=== PATIENT | female | born 1995 | race Caucasian/White ===

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

== ENCOUNTER 2017-03-11 20:05 | Emergency (ER) | payer OTHER, MEDICAID ==
[2017-03-11 20:21] VITALS: TEMP 97.7
[2017-03-11] MEDS ORDERED: LORazepam 1 MG TAB PO ONE (21:04)
[2017-03-11] MEDS ORDERED: diphenhydrAMINE 25 MG CAP PO ONE (21:04)
--- NOTE | 2017-03-11 21:04 | EDPHY ---
H & P Stated Complaint: sinus pain for months seen by beatriz yesterday worsening today Time Seen by Provider: 03/11/17 21:01 HPI/ROS: HPI: This is a 22-year-old female who presents Chief Complaint: Medication reaction Location: Sinus Quality: Fullness Duration: Today Signs and Symptoms: No fever, no rhinorrhea, no headache, no ear pain, no difficulty swallowing, no wheezing Timing: Acute Severity: Moderate Context: Patient reports that she has a history of sinus disease x3 months, treated with nasal spray and multiple antibiotics. She saw Dr. Soto ENT yesterday and told it was nasal inflammation; given Flonase. She use the Flonase today immediately felt like it made her sinus full and swollen. She is extremely anxious and is requesting medications to calm her nerves. Modifying Factors: Has not tried any [id number] medications did not call ENT Comment: ROS: Constitutional: No fever, no chills, no weight loss Eyes: No blurred vision Respiratory: No shortness of breath, no cough Cardiovascular: No chest pain Gastrointestinal: No nausea, no vomiting no diarrhea Genitourinary: No dysuria Extremities: No myalgias Neurologic: No weakness, no numbness Skin: No rashes Hematologic: No bruising, no bleeding Past medical history: Amenorrhea, PTSD. Past surgical history: Denies. Family history: "Autoimmune issues." Social history: Student at [employer]. Source: Patient Exam Limitations: No limitations - Personal History Current Tetanus/Diphtheria Vaccine: Yes Current Tetanus Diphtheria and Acellular Pertussis (TDAP): Yes - Medical/Surgical History Hx Asthma: No Hx Chronic Respiratory Disease: No Hx Diabetes: No Hx Cardiac Disease: No Hx Renal Disease: No Hx Cirrhosis: No Hx Alcoholism: No Hx HIV/AIDS: No Hx Splenectomy or Spleen Trauma: No Other PMH: amenorrhea. denies surgical Hx - Social History Smoking Status: Never smoked - Physical Exam Exam: CONSTITUTIONAL: Tearful, anxious white petite female holding a stuffed animal awake and alert, no obvious distress HEENT: Atraumatic and normocephalic, PERRL, EOMI. Tympanic membranes clear. Oropharynx clear, no exudate and moist pink mucosa. Nares patent; mucosa pale; no rhinorrhea; no mucosal edema. Airway patent. No lymphadenopathy. No meningismus. Cardiovascular: Normal S1/S2, regular rate, regular rhythm, without murmur rub or gallop. PULMONARY/CHEST: Symmetrical and nontender. Clear to auscultation bilaterally Good air movement. No accessory muscle usage. ABDOMEN: Soft, nondistended, nontender, no rebound, no guarding, no peritoneal signs, no masses or organomegaly. No CVAT. EXTREMITIES: 2/2 pulses, no deformities, no clubbing, no cyanosis or edema. NEUROLOGICAL: no focal neuro deficits. GCS 15. SKIN: Warm and dry, no erythema. no rash. Good capillary refill. Constitutional: Initial Vital Signs Temperature (C) 36.5 C 03/11/17 20:16 Heart Rate 79 03/11/17 20:16 Respiratory Rate 18 03/11/17 20:16 Blood Pressure 93/62 L 03/11/17 20:16 O2 Sat (%) 97 03/11/17 20:16 O2 Delivery Mode Room Air Allergies/Adverse Reactions: gluten Allergy (Verified 09/30/16 16:18) Home Medications: Medication Instructions Recorded Fluticasone Nasal [Flonase Nasal 03/11/17 [place]] Medical Decision Making ED Course/Re-evaluation: Given Benadryl and Ativan with moderate relief Afebrile. No systemic signs. Sinus disease chronic in nature. Advised to discontinue Flonase and follow up with ENT Suspect anxiety component No signs of abscess/cellulitis/sepsis Differential Diagnosis: Headache including but not limited to subarachnoid hemorrhage, migraine headache , tension headache and infectious causes such as meningitis, pharyngitis and sinusitis. Departure - Departure Disposition: Home, Routine, Self-Care Clinical Impression: Sinus disease Medication adverse effect Qualifiers: Encounter type: initial encounter Qualified Code(s): T88.7XXA - Unspecified adverse effect of drug or medicament, initial encounter Condition: Good Instructions: Sinusitis (ED), Allergies (ED) Additional Instructions: Stop taking Flonase. Advise ENT of your adverse reaction and follow up with them. Use Benadryl 25-50 mg every 4-6 hours as needed for allergic reaction. Referrals: Keli Grant MD [Primary Care Provider] - As per Instructions
[2017-03-12 00:30] VITALS: BP 95/64; PULSE 58; RESP 14; O2SAT 95
== END 2017-03-12 00:30 | disposition home or self-care (01) ==
DX: J32.9 Chronic sinusitis, unspecified (principal); T49.6X5A Adverse effect of otorhinolaryngological drugs and preparations, initial encounter

== ENCOUNTER → 2017-08-28 | Outpatient (CLI) | payer OTHER, MEDICAID | LOC: FIMAGING 08:04 | PROVIDERS: ATTEND Psychiatry & Neurology Neurology | DX: R51 Headache (principal) ==

== ENCOUNTER 2018-06-03 22:09 | Emergency (ER) | payer OTHER, MEDICAID ==
--- NOTE | 2018-06-03 22:22 | EDPHY ---
H & P Stated Complaint: L ARM PAIN/FALL Time Seen by Provider: 06/03/18 22:22 HPI/ROS: HPI CHIEF COMPLAINT: Left elbow pain status post fall. HISTORY OF PRESENT ILLNESS: 23-year-old female she is otherwise healthy, denies taking any medications presents emergency room with left elbow pain left elbow swelling. Patient states she was walking home from the grocery store, and slipped and fell on ice. She did not see the ice landed on her left elbow. She now has left elbow swelling. Denies head strike or neck pain. Denies chest pain or shortness of breath. She states she initially landed on her butt and then left elbow. She has pain with range of motion of her left arm. Left upper extremity is otherwise neurovascular intact with a hematoma over the left elbow. Good distal pulse. No wrist pain, no hand pain, no forearm pain, pain is located left posterior elbow. Past Medical History: Denies medical history Past Surgical History: Denies surgical history Social History: Denies drugs alcohol tobacco. Family History: Noncontributory ROS REVIEW OF SYSTEMS: 10 Systems were reviewed and negative with the exception of the elements mentioned in the history of present illness. Exam Constitutional triage nursing summary reviewed, vital signs reviewed, awake/ alert. Eyes normal conjunctivae and sclera, EOMI, PERRLA. HENT normal inspection, atraumatic, moist mucus membranes, no epistaxis, neck supple/ no meningismus, no raccoon eyes. Respiratory clear to auscultation bilaterally, normal breath sounds, no respiratory distress, no wheezing. Cardiovascular rate normal, regular rhythm, no murmur, no edema, distal pulses normal. Gastrointestinal soft, non-tender, no rebound, no guarding, normal bowel sounds, no distension, no pulsatile mass. Genitourinary no CVA tenderness. 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 No laceration. No abrasion. Sensation intact. No compartment syndrome. no midline vertebral tenderness, full range of motion, no calf swelling, no tenderness of extremities, no meningismus, good pulses, neurovascularly intact. Skin pink, warm, & dry, no rash, skin atraumatic. Neurologic awake, alert and oriented x 3, AAOx3, moves all 4 extremities equally, motor intact, sensory intact, CN II-XII intact, normal cerebellar, normal vision, normal speech. Psychiatric normal mood/affect. Heme/Lymph/Immune no lymphadenopathy. Differential Diagnosis: Includes but is not limited to in a particular order elbow contusion, elbow sprain, elbow fracture, radial head fracture, occult fracture, hemarthrosis, soft tissue injury, contusion, hematoma. Medical Decision Making: Plan for this patient x-ray left elbow. Ice pack, ibuprofen. Will have a low threshold to splint her given the amount of trauma. Patient most likely need to follow up with Orthopedics. Re-evaluation: Recommend the patient splint Sling Ibuprofen Ice Close orthopedic follow-up. X-ray reviewed. This shows olecranon fracture. Patient will be splinted posterior long-arm splint. Sling. Orthopedic follow- up. Patient understands she needs to follow up with Orthopedics. Olecranon fracture. Closed. Patient be splinted posterior long-arm splint. Sling. [place] and ibuprofen for pain control. After discussion about her fracture x-ray she became very upset and somewhat anxious. Mom request Ativan at bedside. 1 mg p.o. Ativan ordered. Source: Patient - Personal History LMP (Females 10-55): 15-21 Days Ago Current Tetanus Diphtheria and Acellular Pertussis (TDAP): Yes - Medical/Surgical History Hx Asthma: No Hx Chronic Respiratory Disease: No Hx Diabetes: No Hx Cardiac Disease: No Hx Renal Disease: No Hx Cirrhosis: No Hx Alcoholism: No Hx HIV/AIDS: No Hx Splenectomy or Spleen Trauma: No Other PMH: amenorrhea. denies surgical Hx - Social History Smoking Status: Never smoked Constitutional: Initial Vital Signs Temperature (C) 36.2 C 06/03/18 22:14 Heart Rate 83 06/03/18 22:14 Respiratory Rate 16 06/03/18 22:14 Blood Pressure 123/72 H 06/03/18 22:14 O2 Sat (%) 97 06/03/18 22:14 O2 Delivery Mode Room Air Allergies/Adverse Reactions: gluten Allergy (Verified 09/30/16 16:18) Home Medications: Medication Instructions Recorded Hydrocodone/APAP 5/325 [[place] 1 - 2 tab PO Q4H PRN #10 tab 06/03/18 5/325] Ibuprofen [Motrin (*)] 800 mg PO Q6-8PRN #14 tab 06/03/18 Medical Decision Making - Diagnostics Imaging Results: Imaging Impressions Elbow X-Ray 06/03/18 22:24 Impression: Displaced comminuted proximal ulna olecranon process fracture. - Data Points Medications Given: Discontinued Medications Ibuprofen (Motrin) 800 mg PO EDNOW ONE Stop: 06/03/18 22:25 Last Admin: 06/03/18 22:27 Dose: 800 mg Departure - Departure Disposition: Home, Routine, Self-Care Clinical Impression: Elbow fracture, left Qualifiers: Encounter type: initial encounter Fracture type: closed Qualified Code(s): S42.402A - Unspecified fracture of lower end of left humerus, initial encounter for closed fracture Condition: Good Instructions: Elbow Fracture (ED) Additional Instructions: 1. Recommend ice 2. Elevation. 3. Splint for comfort 4. Tylenol and Motrin for pain control 5. Follow up with Orthopedics. Referrals: Keli Grant MD [Primary Care Provider] - As per Instructions Cele Vines MD [Medical Doctor] - As per Instructions Prescriptions: Hydrocodone/APAP 5/325 [[place] 5/325] 1 - 2 tab PO Q4H PRN #10 tab PRN Reason: Pain, Moderate Ibuprofen [Motrin (*)] 800 mg PO Q6-8PRN #14 tab
[2018-06-03] MEDS ORDERED: IBUPROFEN 800 MG TAB PO ONE (22:24)
[2018-06-03] MEDS ORDERED: LORazepam 1 MG TAB PO ONE (23:12)
[2018-06-04 00:06] VITALS: BP 118/64
--- NOTE | 2018-06-07 21:33 | ASMTCMCOM ---
CM Note CM Note Notes: Patient contacted CM regarding neccessary referral/authorization request from [facility] for scheduled orthopedic appointment with Dr. Vines on June 09. This CM contacted Dinah Owens RN, out of school hours care worker for patient's PCP, Dr. Keli Grant. ED records and referral reviewed per Dr. Grant and authorization process with [facility] in progress. CM available prn Date Signed: 06/07/2018 02:17 PM Electronically Signed By:Aurora Rees RN
== END 2018-06-04 00:05 | disposition home or self-care (01) ==
PROC: 2W39X1Z Immobilization of Left Upper Extremity using Splint (ICD-10-PCS; principal; 2018-06-03)
DX: S42.402A Unspecified fracture of lower end of left humerus, initial encounter for closed fracture (principal); W00.0XXA Fall on same level due to ice and snow, initial encounter; Y93.01 Activity, walking, marching and hiking; Y92.9 Unspecified place or not applicable; Y99.8 Other external cause status
CPT/HCPCS: A4565

== ENCOUNTER 2018-06-14 00:51 | Emergency (ER) | payer OTHER, MEDICAID ==
[2018-06-14 00:57] VITALS: BP 102/70
--- NOTE | 2018-06-14 01:08 | EDPHY ---
H & P Stated Complaint: L HAND BRUISING, FX L ELBOW 06/03 Time Seen by Provider: 06/14/18 01:07 HPI/ROS: HPI CHIEF COMPLAINT: Bruising to left hand. HISTORY OF PRESENT ILLNESS: Very pleasant 23-year-old female, who I saw on June 03, had a elbow fracture after she slipped on ice. She was splinted posterior long-arm elbow and followed up with Orthopedics. She presents emergency room with some bruising to the dorsum of her left hand. No pain. No numbness or tingling no swelling. However the splint is also approximately 2- week-old and is loose, and hanging off. Will re-splint. Denies any significant pain, numbness or tingling, increasing swelling, fever, came to the emergency room due to discoloration of the left dorsum hand. Ecchymosis/colored green and yellow. Appears to be old bruising. Additionally this patient reports to me she has not wearing her sling. Her arm is often hanging. This is why she is getting some bruising in her hand as it is gravity dependent. I do recommend she stays in her sling as previously directed. Past Medical History: No significant medical history Past Surgical History: No significant surgical history Social History: Lives locally, mom bedside. Family History: Noncontributory ROS REVIEW OF SYSTEMS: 10 Systems were reviewed and negative with the exception of the elements mentioned in the history of present illness. Exam Constitutional appears well nontoxic triage nursing summary reviewed, vital signs reviewed, awake/alert. Eyes normal conjunctivae and sclera, EOMI, PERRLA. HENT normal inspection, atraumatic, moist mucus membranes, no epistaxis, neck supple/ no meningismus, no raccoon eyes. Respiratory clear to auscultation bilaterally, normal breath sounds, no respiratory distress, no wheezing. Cardiovascular rate normal, regular rhythm, no murmur, no edema, distal pulses normal. Gastrointestinal soft, non-tender, no rebound, no guarding, normal bowel sounds, no distension, no pulsatile mass. Genitourinary no CVA tenderness. Musculoskeletal no midline vertebral tenderness, full range of motion, no calf swelling, no tenderness of extremities, no meningismus, good pulses, neurovascularly intact. Skin left hand: Dorsum of the left hand is some green-yellow ecchymosis. Neurologic awake, alert and oriented x 3, AAOx3, moves all 4 extremities equally, motor intact, sensory intact, CN II-XII intact, normal cerebellar, normal vision, normal speech. Psychiatric normal mood/affect. Heme/Lymph/Immune no lymphadenopathy. Differential Diagnosis: Includes but is not limited to in a particular order need for splint adjustment Medical Decision Making: Plan for this patient takes splint down and replaced splint and examined arm fully. Re-evaluation: Splint was taken down. Her arm was re-examined. it is neurovascularly intact. Some mild swelling noted to left posterior elbow. Evans brown ecchymosis along the forearm. No significant swelling. Compartments are soft. Neurovascularly intact with good cap refill, sensation intact. Appears appropriate. New splint has been placed. Posterior long-arm has been applied. Patient tolerated this well. Neurovascular intact post splint placement Source: Patient - Personal History LMP (Females 10-55): Over 28 Days Ago Current Tetanus Diphtheria and Acellular Pertussis (TDAP): Yes - Medical/Surgical History Hx Asthma: No Hx Chronic Respiratory Disease: No Hx Diabetes: No Hx Cardiac Disease: No Hx Renal Disease: No Hx Cirrhosis: No Hx Alcoholism: No Hx HIV/AIDS: No Hx Splenectomy or Spleen Trauma: No Other PMH: amenorrhea. denies surgical Hx - Social History Smoking Status: Never smoked Constitutional: Initial Vital Signs Temperature (C) 36.9 C 06/14/18 00:56 Heart Rate 98 06/14/18 00:56 Respiratory Rate 16 06/14/18 00:56 Blood Pressure 102/70 06/14/18 00:56 O2 Sat (%) 95 06/14/18 00:56 O2 Delivery Mode Room Air Allergies/Adverse Reactions: gluten Allergy (Verified 09/30/16 16:18) Home Medications: Medication Instructions Recorded NK [No Known Home Meds] 06/14/18 Departure - Departure Disposition: Home, Routine, Self-Care Clinical Impression: Elbow fracture Qualifiers: Encounter type: initial encounter Fracture type: closed Laterality: left Qualified Code(s): S42.402A - Unspecified fracture of lower end of left humerus , initial encounter for closed fracture Condition: Good Instructions: Elbow Fracture (ED), Ecchymosis (ED) Additional Instructions: 1. Return if worsening symptoms questions or concerns 2. Ice. 3. Sling for comfort. 4. Continue to follow up with Orthopedics. Referrals: Keli Grant MD [Primary Care Provider] - As per Instructions
== END 2018-06-14 01:43 | disposition home or self-care (01) ==
PROC: 2W39X1Z Immobilization of Left Upper Extremity using Splint (ICD-10-PCS; principal; 2018-06-14)
DX: S42.402D Unspecified fracture of lower end of left humerus, subsequent encounter for fracture with routine healing (principal); S60.222A Contusion of left hand, initial encounter; W00.0XXD Fall on same level due to ice and snow, subsequent encounter; Y92.9 Unspecified place or not applicable; Y93.89 Activity, other specified; Y99.9 Unspecified external cause status